=== PATIENT | male | born 1990 | race Caucasian/White ===

== ENCOUNTER 2019-05-31 07:12 | Emergency (ER) | payer OTHER ==
[2019-05-31] MEDS ORDERED: Sodium Chloride 0.9% 1,000 ML IV ONE (07:39)
[2019-05-31] MEDS ORDERED: Ondansetron 4 MG/2 ML SDV IVPUSH ONE (07:40)
--- NOTE | 2019-05-31 07:58 | EDM.PDOC ---
ED HPI GENERAL MEDICAL PROBLEM - General Chief Complaint: Abdominal Pain Stated Complaint: VOMITTING, STOMACH PAIN Time Seen by Provider: 05/31/19 07:45 Source of Information: Reports: Patient - History of Present Illness INITIAL COMMENTS - FREE TEXT/NARRATIVE: Patient complains of abdominal pain which began a few hours after eating a sandwich which he purchased from a sandwich shop. The pain is crampy, sharp, and starts in the low abdomen, then generalizes. It is associated with over 10 episodes of watery, nonbloody diarrhea and one episode of nonbloody, nonbilious emesis. He said it is a little better if he rocks back and forth. No recent antibiotics. Abdominal Pain Pain Score (Numeric/FACES): 5 - Related Data Allergies Allergy/AdvReac Type Severity Reaction Status Date / Time azithromycin [From Zithromax] Allergy Cannot Verified 05/31/19 07:48 Remember codeine Allergy Cannot Verified 05/31/19 07:27 Remember Sulfa (Sulfonamide Allergy Rash Verified 05/31/19 08:26 Antibiotics) Home Meds: Home Meds Dicyclomine [Bentyl] 20 mg PO Q6H PRN #16 tablet 05/31/19 [Rx] Ondansetron HCl [Zofran] 4 mg PO Q6H PRN 3 Days #12 tablet 05/31/19 [Rx] Past Medical History - Infectious Disease History Infectious Disease History: Reports: None - Past Surgical History HEENT Surgical History: Reports: Tonsillectomy Male Surgical History: Reports: Nephrectomy Other Male Surgeries/Procedures: Left side Social & Family History - Family History Family Medical History: Noncontributory - Tobacco Use Smoking Status *Q: Never Smoker - Caffeine Use Caffeine Use: Reports: Coffee - Recreational Drug Use Recreational Drug Use: No ED ROS GENERAL - Review of Systems Review Of Systems: See Below Constitutional: Denies: Fever, Malaise, Weakness HEENT: Denies: Rhinitis, Throat Pain Respiratory: Denies: Shortness of Breath, Cough Cardiovascular: Denies: Chest Pain GI/Abdominal: Reports: Abdominal Pain, Decreased Appetite. Denies: Black Stool , Bloody Stool, Difficulty Swallowing, Hematemesis, Hematochezia, Melena : Denies: Dysuria, Flank Pain Skin: Denies: Change in Color ED EXAM, GI/ABD - Physical Exam Exam: See Below Text/Narrative:: General: alert, tired appearing, not retching or vomiting, nontoxic HEENT: Atraumatic, normocephalic, pupils reactive, negative for conjunctival pallor or scleral icterus, mucous membranes moist, throat clear, handling oral secretions well. Neck: supple, nontender, trachea midline. Lungs: Clear to auscultation, breath sounds equal bilaterally, chest nontender. Heart: S1S2, regular, negative for clicks, rubs, or JVD. Abdomen: Soft, nondistended, nontender. Negative for masses or hepatosplenomegaly. Skin: warm, dry, good turgor. No icterus. Musculoskeletal: soft compartments. Extremities: Atraumatic, negative for cords or calf pain. Neurovascular unremarkable. Neuro: Awake, alert, oriented. Cranial nerves II through XII unremarkable. Cerebellum unremarkable. Motor and sensory unremarkable throughout. Exam nonfocal. Course - Vital Signs Text/Narrative:: CBC: Normal CMP: Mild hyperglycemia glucose equals 118 (not clinically significant) Lipase: Unremarkable at 70 Urinalysis: Negative blood, nitrate, leukocyte esterase CT abdomen and pelvis: Report advises areas of bowel wall thickening in the sigmoid colon; this is a nonspecific finding; radiologist recommends endoscopy. The report indicates that there are no gallstones. No discrete pancreatic abnormality. Appendix is normal. Minimal fat-containing umbilical hernia. 8:51 just got the Bentyl. Declining additional pain meds right now, but has been advised to let us know if he feels like needs any additional medications for his pain. Waiting for CTof the abdomen and pelvis.. 10:30am CT resulted. Findings discussed with patient. Patient advised that while we do not know the cause of the pain, it does not appear to be something that needs to keep him in the hospital. However he does need another test. I informed him the radiologist is advising endoscopy. I told him that the staff here informed me that this test is done through the surgery clinic. Patient given a referral to surgery clinic. Patient's abdomen reexamined. He has a small amount of tenderness in the infraumbilical region, but no other point tenderness. He said the morphine helped him feel better but he would like another dose before he goes. He is well-appearing and nontoxic. He has no distention of the abdomen and he has normal bowel sounds. Will discharge to home with prescriptions for Bentyl and Lortab; he is asked to follow-up in surgery clinic. Nursing made a surgery clinic appointment for him and he is asked to keep it. Return to the emergency department for new, changing, or worsening symptoms. Last Recorded V/S: Last Vital Signs Temp 97.5 F 05/31/19 09:55 Pulse 69 05/31/19 09:55 Resp 18 05/31/19 07:27 BP 155/82 H 05/31/19 09:55 Pulse Ox 97 05/31/19 09:55 - Orders/Labs/Meds Labs: Laboratory Tests 05/31/19 05/31/19 05/31/19 Range/Units 07:34 07:34 07:47 WBC 10.85 (4.0-11.0) K/uL RBC 5.53 (4.50-5.90) M/uL Hgb 16.1 (13.0-17.0) g/dL Hct 45.1 (38.0-50.0) % MCV 81.6 (80.0-98.0) fL MCH 29.1 (27.0-32.0) pg MCHC 35.7 (31.0-37.0) g/dL RDW Std Deviation 39.2 (28.0-62.0) fl RDW Coeff of Danilo 13 (11.0-15.0) % Plt Count 275 (150-400) K/uL MPV 11.20 (7.40-12.00) fL Add Manual Diff YES Neutrophils % (Manual) 66 (48.0-80.0) % Band Neutrophils % 9 % Lymphocytes % (Manual) 18 (16.0-40.0) % Monocytes % (Manual) 6 (0.0-15.0) % Eosinophils % (Manual) 1 (0.0-7.0) % Absolute Seg Neuts 7.2 H (1.4-5.7) Band Neutrophils # 1.0 Lymphocytes # (Manual) 2.0 (0.6-2.4) Monocytes # (Manual) 0.7 (0.0-0.8) Eosinophils # (Manual) 0.1 (0.0-0.7) Sodium 141 (136-148) mmol/L Potassium 4.5 (3.5-5.1) mmol/L Chloride 107 (98-107) mmol/L Carbon Dioxide 20.4 L (21.0-32.0) mmol/L BUN 16 (7.0-18.0) mg/dL Creatinine 1.0 (0.8-1.3) mg/dL Est Cr Clr Drug Dosing TNP Estimated GFR (MDRD) > 60.0 ml/min Glucose 118 H (74-106) mg/dL Calcium 8.5 (8.5-10.1) mg/dL Total Bilirubin 0.4 (0.2-1.0) mg/dL AST 26 (15-37) IU/L ALT 47 (14-63) IU/L Alkaline Phosphatase 83 (46-116) U/L Total Protein 6.9 (6.4-8.2) g/dL Albumin 3.7 (3.4-5.0) g/dL Globulin 3.2 (2.6-4.0) g/dL Albumin/Globulin Ratio 1.2 (0.9-1.6) Lipase 70 L (73-393) U/L Urine Color YELLOW Urine Appearance CLEAR Urine pH 5.5 (5.0-8.0) Ur Specific Leola >= 1.030 (1.001-1.035) Urine Protein NEGATIVE (NEGATIVE) mg/dL Urine Glucose (UA) NEGATIVE (NEGATIVE) mg/dL Urine Ketones NEGATIVE (NEGATIVE) mg/dL Urine Occult Blood NEGATIVE (NEGATIVE) Urine Nitrite NEGATIVE (NEGATIVE) Urine Bilirubin NEGATIVE (NEGATIVE) Urine Urobilinogen 0.2 (<2.0) EU/dL Ur Leukocyte Esterase NEGATIVE (NEGATIVE) Urine RBC 0-1 (0-2/HPF) Urine WBC 0-2 (0-5/HPF) Ur Epithelial Cells RARE (NONE-FEW) Urine Bacteria RARE (NEGATIVE) Meds: Medications Discontinued Medications Generic Name Dose Route Start Last Admin Trade Name Freq PRN Reason Stop Dose Admin Dicyclomine HCl 10 mg 05/31/19 08:38 05/31/19 08:45 Bentyl PO 05/31/19 08:39 10 mg ONETIME ONE Administration Sodium Chloride 1,000 mls @ 999 mls/hr 05/31/19 07:39 05/31/19 07:47 Normal Saline IV 05/31/19 08:39 999 mls/hr .BOLUS ONE Administration Morphine Sulfate 4 mg 05/31/19 09:36 05/31/19 09:41 Morphine IVPUSH 05/31/19 09:37 4 mg ONETIME ONE Administration Morphine Sulfate 4 mg 05/31/19 10:31 Morphine IVPUSH 05/31/19 10:32 ONETIME ONE Ondansetron HCl 4 mg 05/31/19 07:40 05/31/19 08:25 Zofran IVPUSH 05/31/19 07:41 4 mg ONETIME ONE Administration Departure - Departure Time of Disposition: 10:34 Disposition: Home, Self-Care 01 Condition: Good Clinical Impression: Abdominal pain Qualifiers: Abdominal location: unspecified location Qualified Code(s): R10.9 - Unspecified abdominal pain - Discharge Information *PRESCRIPTION DRUG MONITORING PROGRAM REVIEWED*: No *COPY OF PRESCRIPTION DRUG MONITORING REPORT IN PATIENT JYOTSNA: No Referrals: Carlos Manuel Guajardo MD [Physician] - 06/02/19 11:00 am (Appt with Dr. Guajardo on FridayJune 02 at 11am.) PCP,None [Primary Care Provider] - Forms: ED Department Discharge Sepsis Event Note - Evaluation Sepsis Screening Result: No Definite Risk - Focused Exam Vital Signs: Vital Signs Temp Pulse Resp BP Pulse Ox 05/31/19 09:55 97.5 F 69 155/82 H 97 05/31/19 07:27 97.8 F 69 18 145/88 H 98 Date Exam was Performed: 05/31/19 Time Exam was Performed: 10:32
[2019-05-31 08:15] LABS: BLOOD UREA NITROGEN,BUN 16 mg/dL (7.0-18.0); CARBON DIOXIDE,CO2 20.4 mmol/L (21.0-32.0); CHLORIDE,CL 107 mmol/L (98-107); GLUCOSE RANDOM 118 mg/dL (74-106); LIPASE 70 U/L (73-393); POTASSIUM,K 4.5 mmol/L (3.5-5.1); SODIUM,NA 141 mmol/L (136-148)
[2019-05-31] MEDS ORDERED: Dicyclomine 10 MG Cap PO ONE (08:38)
[2019-05-31] MEDS ORDERED: Morphine 4 MG/ML Syringe IVPUSH ONE ×2 (09:36→10:31)
--- NOTE | 2019-05-31 10:10 | CT ---
CT abdomen and pelvis Technique: Multiple axial sections were obtained from above the dome of the diaphragm inferiorly through the pubic symphysis. Intravenous and oral contrast was not utilized. Comparison: No prior abdominal imaging. Findings: Absent left kidney is noted. Right kidney shows no hydronephrosis. No discrete right sided renal mass is noted. No right-sided ureteral dilatation or ureteral stone is seen. Visualized lung bases show nothing acute. Noncontrast appearance of the liver shows no focal abnormality. Spleen is unremarkable. Adrenal glands show no nodule. Gallbladder contains no calcified gallstones. No discrete pancreatic abnormality is seen. Aorta shows no aneurysm. No retroperitoneal adenopathy or mesenteric abnormalities are seen. Appendix is seen which is normal. No pelvic mass or adenopathy is appreciated. There is questionable bowel wall thickening within portions of the sigmoid colon, endoscopy is recommended to further evaluate. Minimal fat-containing umbilical hernia is noted. Small fat-containing right inguinal hernia is noted. Bone window settings were reviewed. No acute osseous finding is appreciated. Impression: 1. Absent left kidney. 2. Areas of bowel wall thickening suggested within the sigmoid colon. This is nonspecific regarding etiology and endoscopy is recommended to confirm. 3. Other findings believed to be incidental. No other acute finding is appreciated. Diagnostic code #9 This report was dictated in [place] Standard Time
== END 2019-05-31 11:25 | disposition home or self-care (01) ==
LOC: MW.ED 07:12
DX: R10.84 Generalized abdominal pain (principal); R19.7 Diarrhea, unspecified; R11.10 Vomiting, unspecified; Z88.1 Allergy status to other antibiotic agents; Z88.5 Allergy status to narcotic agent; Z88.2 Allergy status to sulfonamides; Z79.899 Other long term (current) drug therapy
CPT/HCPCS: 74176; 80053; 81001; 83690; 85025; 96361; 96374; 96375; 96376; 99284; A9270; J2270; J2405; J7030

== ENCOUNTER 2019-06-28 13:55 | Day surgery (SDC) | payer OTHER ==
[~2019-06-28 13:55] MED LIST: Lactated Ringers 1,000 ML IV SCH
--- NOTE | 2019-06-28 14:48 | PCM.PREANE ---
Preanesthetic Assessment - Anesthesia/Transfusion/Family Hx Anesthesia History: Prior Anesthesia Without Reaction Family History of Anesthesia Reaction: No Transfusion History: No Prior Transfusion(s) Intubation History: Unknown - Review of Systems General: No Symptoms Pulmonary: No Symptoms Cardiovascular: No Symptoms Gastrointestinal: Abdominal Pain Neurological: No Symptoms Other: Reports: None - Physical Assessment Vital Signs: Last Vital Signs Temp 36.7 C 06/28/19 14:41 Pulse 64 06/28/19 14:41 Resp 16 06/28/19 14:41 BP 135/73 06/28/19 14:41 Pulse Ox 96 06/28/19 14:41 Height: 5 ft 10 in Weight: 126.552 kg ASA Class: 2 Mental Status: Alert & Oriented x3 Airway Class: Mallampati = 2 Dentition: Reports: Normal Dentition Thyro-Mental Finger Breadths: 3 Mouth Opening Finger Breadths: 2 ROM/Head Extension: Full Lungs: Clear to Auscultation, Normal Respiratory Effort Cardiovascular: Regular Rate, Regular Rhythm - Allergies Allergies/Adverse Reactions: Allergies Allergy/AdvReac Type Severity Reaction Status Date / Time azithromycin [From Zithromax] Allergy Hives Verified 06/28/19 14:37 codeine Allergy Hives Verified 06/28/19 14:37 Sulfa (Sulfonamide Allergy Hives Verified 06/28/19 14:37 Antibiotics) - Blood Blood Available: No - Anesthesia Plan Pre-Op Medication Ordered: None - Acknowledgements Anesthesia Type Planned: MAC Pt an Appropriate Candidate for the Planned Anesthesia: Yes Alternatives and Risks of Anesthesia Discussed w Pt/Guardian: Yes Pt/Guardian Understands and Agrees with Anesthesia Plan: Yes PreAnesthesia Questionnaire Respiratory History: Reports: Sleep Apnea Other Respiratory History: uses CPAP nightly Gastrointestinal History: Reports: Other (See Below) Other Gastrointestinal History: abdominal pain Musculoskeletal History: Reports: Fracture Other Musculoskeletal History: hx of fx right and left arm x2, fx left ankle Endocrine/Metabolic History: Reports: Obesity/BMI 30+ (BMI 40.0) Dermatologic History: Reports: Eczema - Infectious Disease History Infectious Disease History: Reports: None - Past Surgical History Head Surgeries/Procedures: Reports: None HEENT Surgical History: Reports: Oral Surgery, Tonsillectomy Other HEENT Surgeries/Procedures: removal of wisdom teeth Male Surgical History: Reports: Nephrectomy Other Male Surgeries/Procedures: 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 Musculoskeletal Surgical History: Reports: ORIF Other Musculoskeletal Surgeries/Procedures:: hx of ORIF right arm as a child- unsure if he has any metal hardware - SUBSTANCE USE Smoking Status *Q: Never Smoker Recreational Drug Use History: No - HOME MEDS Home Medications: Home Meds Dicyclomine [Bentyl] 20 mg PO Q6H PRN #16 tablet 05/31/19 [Rx] Ondansetron HCl [Zofran] 4 mg PO Q6H PRN 3 Days #12 tablet 05/31/19 [Rx] Hydrocodone/Acetaminophen [Hydrocodon-Acetaminoph 7.5-325] 1 tab PO ASDIRECTED PRN 06/22/19 [History] - CURRENT (IN HOUSE) MEDS Current Meds: Current Medications Lactated Ringer's (Ringers, Lactated) 1,000 mls @ 125 mls/hr IV ASDIRECTED ERNESTO
[2019-06-28] MEDS ORDERED: Propofol 200 MG/20 ML SDV ONE (15:48)
[2019-06-28] MEDS ORDERED: Midazolam 1 MG/ML 2 ML SDV ONE (15:49)
[2019-06-28] MEDS ORDERED: Lidocaine 2% 5 ML SDV ONE (15:49)
[2019-06-28] MEDS ORDERED: Lactated Ringers 1,000 ML IV SCH (16:45)
--- NOTE | 2019-06-28 16:45 | PCM.POSTAN ---
POST ANESTHESIA ASSESSMENT - MENTAL STATUS Mental Status: Alert, Oriented - VITAL SIGNS Vital Signs: Last Vital Signs Temp 36 C L 06/28/19 16:26 Pulse 58 L 06/28/19 16:41 Resp 19 06/28/19 16:41 BP 119/75 06/28/19 16:41 Pulse Ox 97 06/28/19 16:41 - RESPIRATORY Respiratory Status: Respiratory Rate WNL, Airway Patent, O2 Saturation Stable - CARDIOVASCULAR CV Status: Pulse Rate WNL, Blood Pressure Stable - GASTROINTESTINAL GI Status: No Symptoms - PAIN Pain Score: 0 - POST OP HYDRATION Hydration Status: Adequate & Stable
--- NOTE | 2019-06-28 16:48 | PCM.OPNOTE ---
- General Post-Op/Procedure Note Date of Surgery/Procedure: 06/28/19 Operative Procedure(s): Colonoscopy with random cecal & rectal biopsies. Pre Op Diagnosis: Change in bowel habits. Abdominal pain. Mural wall thickening. F hx colon cancer. Post-Op Diagnosis: Nonspecific colitis Anesthesia Technique: MAC (ASA II) Primary Surgeon: Carlos Manuel Guajardo Condition: Good Free Text/Narrative:: Intake & Output 06/28/19 06/28/19 06/28/19 03:59 11:59 19:59 Intake Total 850 Balance 850 DICTATION [id number] CPT CODE 71018
--- NOTE | 2019-06-28 17:00 | OR ---
SURGEON: Carlos Manuel Guajardo M.D. DATE OF PROCEDURE: 06/28/2019 OPERATION PERFORMED: Colonoscopy with random biopsies from the cecum and rectum. PRIMARY SURGEON: Carlos Manuel Guajardo MD ANESTHESIA: MAC. ASA CLASSIFICATION: II. PREOPERATIVE DIAGNOSES: 1. Change in bowel habits. 2. Family history of colon cancer. 3. Abdominal pain. 4. Abnormal CAT scan with mural thickening. POSTOPERATIVE DIAGNOSIS: No acute inflammatory change. DESCRIPTION OF PROCEDURE: The patient was taken to the endoscopy room and positioned on the endoscopy table in the left lateral decubitus position. Time-out was called for appropriate identification of the patient and procedure. Monitored anesthesia care was provided. The colonoscope was inserted into the rectum and advanced with minimal difficulty to the cecum. The colonoscope was retroflexed to visualize the ascending colon from below, then straightened and slowly withdrawn. Random biopsies from the cecum were obtained to rule out a microscopic colitis. No acute inflammatory changes were noted. The ascending colon, hepatic flexure, transverse colon, splenic flexure, descending colon, and sigmoid colon showed no tumors, polyps, diverticula, or other angiodysplastic changes. The colonoscope was then withdrawn to the rectum. Again, random biopsies were obtained to rule out a nonspecific colitis. Once that was done, the colonoscope was retroflexed to visualize the anal orifice from above. Again, no tumors or polyps were seen and there were no acute hemorrhoidal changes. The colonoscope was then straightened, the rectum aspirated, and the colonoscope removed. The patient tolerated the procedure well and was taken to recovery room in stable condition. AVA / CANDACE /[id number]
--- NOTE | 2019-06-28 17:11 | PCM48HPAN ---
Post Anesthesia Note - EVALUATION WITHIN 48HRS OF ANESTHETIC Vital Signs in Normal Range: Yes Patient Participated in Evaluation: Yes Respiratory Function Stable: Yes Airway Patent: Yes Cardiovascular Function Stable: Yes Hydration Status Stable: Yes Pain Control Satisfactory: Yes Nausea and Vomiting Control Satisfactory: Yes Mental Status Recovered: Yes Vital Signs: Last Vital Signs Temp 36 C L 06/28/19 16:26 Pulse 58 L 06/28/19 16:41 Resp 19 06/28/19 16:41 BP 119/75 06/28/19 16:41 Pulse Ox 97 06/28/19 16:41
== END 2019-06-28 17:10 | disposition home or self-care (01) ==
LOC: MW.SDS 13:55
PROVIDERS: ATTEND Surgery
DX: R19.4 Change in bowel habit (principal); R10.30 Lower abdominal pain, unspecified; R93.5 Abnormal findings on diagnostic imaging of other abdominal regions, including retroperitoneum; Z88.1 Allergy status to other antibiotic agents; Z88.5 Allergy status to narcotic agent; Z88.2 Allergy status to sulfonamides; Z90.5 Acquired absence of kidney; Z72.89 Other problems related to lifestyle; Z80.8 Family history of malignant neoplasm of other organs or systems; Z80.0 Family history of malignant neoplasm of digestive organs
CPT/HCPCS: 45380; 88305; J2001; J2250; J2704; 00811

== ENCOUNTER 2024-08-01 15:25 | Emergency (ER) | payer SELFPAY ==
[2024-08-01] MEDS: methylPREDNISolone Sodium Succinate 125 MG/2 ML SDV IM ONE (15:51)
[2024-08-01] MEDS: Famotidine 20 MG Tab PO ONE (15:51)
[2024-08-01] MEDS: diphenhydrAMINE 50 MG Cap PO ONE (15:51)
== END 2024-08-01 16:44 | disposition home or self-care (01) ==
LOC: MW.ED 15:25
DX: L25.9 Unspecified contact dermatitis, unspecified cause (principal); E66.9 Obesity, unspecified; Z68.28 Body mass index [BMI] 28.0-28.9, adult; Z88.1 Allergy status to other antibiotic agents; Z88.2 Allergy status to sulfonamides; Z88.5 Allergy status to narcotic agent; Z79.899 Other long term (current) drug therapy
CPT/HCPCS: 96372; 99283; A9270; J2919